=== PATIENT | male | born 1985 | race Caucasian/White ===

== ENCOUNTER 2017-07-10 12:20 | Emergency (ER) | payer OTHER ==
[2017-07-10 12:31] VITALS: BP 137/65
[2017-07-10] MEDS ORDERED: TETRACAINE HCL 0.5% OPH SOLN 2 ML ONE (13:33)
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
== END 2017-07-10 13:55 | disposition home or self-care (01) ==
LOC: ER 12:20
DX: H10.31 Unspecified acute conjunctivitis, right eye (principal)
CPT/HCPCS: 99283